=== PATIENT | female | born 1975 | race Caucasian/White ===

== ENCOUNTER 2019-04-14 16:22 | Emergency (ER) | payer BC ==
[~2019-04-14] VITALS: Ht 162.6 cm; Wt 90.7 kg
[2019-04-14 16:29] VITALS: Ht 162.6 cm; Wt 90.7 kg
[2019-04-14 19:21] VITALS: BP 120/79
== END 2019-04-14 19:22 | disposition home or self-care (01) ==
LOC: ED 16:22
DX: S52.502A Unspecified fracture of the lower end of left radius, initial encounter for closed fracture (principal); J45.909 Unspecified asthma, uncomplicated; Z98.890 Other specified postprocedural states; Z88.2 Allergy status to sulfonamides; Z88.1 Allergy status to other antibiotic agents; W19.XXXA Unspecified fall, initial encounter; Y93.51 Activity, roller skating (inline) and skateboarding; Y92.331 Roller skating rink as the place of occurrence of the external cause; Y99.8 Other external cause status
CPT/HCPCS: J1885; J2405; J2704; J3010; J7030; Q0092